=== PATIENT | female | born 2000 | race African-American/Black ===

== ENCOUNTER 2025-07-14 10:44 | Emergency (ER) | payer OTHER ==
[~2025-07-14] VITALS: Ht 165.1 cm; Wt 84.1 kg
[2025-07-14] MEDS ORDERED: SERT-162 PO (10:48)
[2025-07-14] MEDS ORDERED: TRAZ-257 PO (10:48)
[2025-07-14 11:08] LABS: PLATELET COUNT (AUTO) 281 K/uL (150-450); RED BLOOD CELL COUNT(AUTO) 4.43 MIL/uL (4.00-5.20); RED CELL DISTRIBUTION WIDTH 14.2 % (11.5-14.5); WHITE BLOOD COUNT (AUTO) 5.4 K/uL (4.5-11.0)
[2025-07-14 11:16] LABS: CALCIUM, TOTAL 8.5 mg/dL (8.8-10.5); CREATININE 0.82 mg/dL (0.60-1.30); GLOMERULAR FILTR. RATE CALC > 60 mL/min (>60); GLUCOSE,RANDOM 99 mg/dL (70-110); SODIUM SERUM 140 mmol/L (136-145); UREA NITROGEN, BLOOD 13 mg/dL (7-18)
[2025-07-14 11:30] LABS: HCG,QUANTITATIVE < 1 mIU/mL (0-6)
[2025-07-14 11:36] LABS: APPEARANCE,URINE CLEAR (CLEAR); GLUCOSE, URINE (UA) NEGATIVE (NEGATIVE); LEUKOCYTE ESTERASE ,URINE SMALL (NEGATIVE); NITRATE,URINE NEGATIVE (NEGATIVE); OCCULT BLOOD,URINE NEGATIVE (NEGATIVE); SPECIFIC GRAVITIY, URINE 1.025 (1.003-1.030)
[2025-07-14 11:46] LABS: SQUAMOUS EPITHELIAL CELL,UR Few /LPF (None Seen)
[2025-07-14] MEDS: DICYCLOMINE HCL 10 MG CAPSULE PO ONE (12:36)
[2025-07-14] MEDS: ONDANSETRON HCL 4 MG/2 ML VIAL IVP ONE (12:36)
[2025-07-14 13:23] VITALS: BP 101/61; PULSE 62; RESP 18; TEMP 98.1; O2SAT 97
== END 2025-07-14 13:44 | disposition home or self-care (01) ==
LOC: EMS 10:44
DX: K52.9 Noninfective gastroenteritis and colitis, unspecified (principal); R11.2 Nausea with vomiting, unspecified; R10.2 Pelvic and perineal pain; F12.90 Cannabis use, unspecified, uncomplicated; F41.9 Anxiety disorder, unspecified; Z79.899 Other long term (current) drug therapy
CPT/HCPCS: 99283; 96374; 80048; 81001; 83690; 84702; 85025; 36415; J2405